=== PATIENT | male | born 1985 | race Caucasian/White ===

== ENCOUNTER 2021-09-08 16:00 | Emergency (ER) | payer BC ==
[2021-09-08 16:07] VITALS: BP 123/77; PULSE 93
[2021-09-08] MEDS: Lidocaine 1% 5 ML VIAL INJECT ONE (16:27)
[2021-09-08] MEDS: Diphtheria,Pertussis(Acell),Tetanus Vaccine 0.5 ML Syringe IM ONE (16:46)
[2021-09-08] MEDS: Bacitracin/Neomycin/Polymyxin B Oint 0.9 GM U/D Packet TOP ONE (16:50)
[2021-09-08] MEDS: Bacitracin/Neomycin/Polymyxin B Oint 28.4 GM Tube TOP ONE (17:00)
== END 2021-09-08 17:00 | disposition home or self-care (01) ==
LOC: CC.ED 16:00
DX: S61.214A Laceration without foreign body of right ring finger without damage to nail, initial encounter (principal); Z23 Encounter for immunization; W26.8XXA Contact with other sharp object(s), not elsewhere classified, initial encounter
CPT/HCPCS: 12002; 90471; 90715; 99283; 99283-25

== ENCOUNTER 2021-11-04 06:50 | Emergency (ER) | payer BC | END 2021-11-04 08:10 | disposition home or self-care (01) | LOC: CC.ED 06:50 | DX: J02.9 Acute pharyngitis, unspecified (principal); Z20.822 Contact with and (suspected) exposure to COVID-19 | CPT/HCPCS: 87430; 99283; U0002 ==